=== PATIENT | male | born 1960 | race Caucasian/White ===

== ENCOUNTER → 2018-04-24 | Outpatient (CLI) | payer BC ==
--- NOTE | 2018-04-25 13:38 | RAD ---
Examination: CT chest low-dose lung screening without contrast HISTORY: History of 40 years of smoking, tobacco use COMPARISON: None available Technique: Axial CT images of chest were performed using CT protocol. Coronal and sagittal reformats performed. Exposure: One or more of the following individualized dose reduction techniques were utilized for this examination: 1. Automated exposure control 2. Adjustment of the mA and/or kV according to patient size 3. Use of iterative reconstruction technique FINDINGS: The visualized thyroid gland grossly appears unremarkable. The central airways are patent. The heart size grossly appears unremarkable. Coronary artery calcifications identified. The caliber grossly appears unremarkable. No radiologically significant mediastinal lymphadenopathy identified. Mild linear bibasilar lung atelectasis or scarring changes. No evidence of pleural effusion or pneumothorax. Minimal changes of COPD in the right apical lung. No evidence of pleural effusion or pneumothorax. No evidence of obvious lung nodule identified. The visualized noncontrasted liver, spleen, adrenals grossly appears unremarkable. No evidence of lytic bony destructive lesion. IMPRESSION: 1. No obvious lung nodules identified. ACR Lung RADS Category 1. Negative. Continue annual screening in 12 months. 2. Mild bibasilar lung atelectasis or scarring changes. Electronically signed by: Chinmay Torres MD (04/25/2018 1:34 PM) [id number]
== END | disposition home or self-care (01) ==
LOC: CT 09:26
PROVIDERS: ATTEND Nurse Practitioner Family
DX: Z12.2 Encounter for screening for malignant neoplasm of respiratory organs (principal); I25.10 Atherosclerotic heart disease of native coronary artery without angina pectoris; Z87.891 Personal history of nicotine dependence
CPT/HCPCS: G0297

== ENCOUNTER 2019-06-29 10:07 | Emergency (ER) | payer BC ==
[~2019-06-29] VITALS: Ht 177.8 cm; Wt 107.5 kg
[2019-06-29 10:16] VITALS: BP 106/72
[2019-06-29] MEDS ORDERED: ALBU2.5V8 IH (10:32)
[2019-06-29] MEDS ORDERED: AZIT250T6 PO (10:32)
--- NOTE | 2019-06-29 10:53 | PHYS DOC ---
Past History Past Medical History: GERD, High Cholesterol, Hypertension, [place] Additional Past Medical Histor: Cardiac stent x2 2015 Past Surgical History: Other Additional Past Surgical Histo: Jaw repair, shoulder x2, wisdom teeth extraction Alcohol Use: Rarely Drug Use: None Adult General Chief Complaint Chief Complaint: COUGH HPI HPI Patient is a 58-year-old male with cough onset 5 days ago green sputum and occas ional subjective fever he is a smoker no known history of COPD that he knows of although he has used inhalers with some relief in the past no chest pain Review of Systems Review of Systems Constitutional: Denies fever or chills [] Eyes: Denies change in visual acuity, redness, or eye pain [] HENT: Denies nasal congestion or sore throat [] Respiratory: : Denies dysuria or hematuria [] Musculoskeletal: Denies back pain or joint pain [] Integument: Denies rash or skin lesions [] Neurologic: Denies headache, focal weakness or sensory changes [] Endocrine: Denies polyuria or polydipsia [] All other systems were reviewed and found to be within normal limits, except as documented in this note. Allergies Allergies Allergies Coded Allergies Type Severity Reaction Last Updated Verified No Known Drug Allergies 06/29/19 No Physical Exam Physical Exam Constitutional: Well developed, well nourished, no acute distress, non-toxic a ppearance. [] HENT: Normocephalic, atraumatic, bilateral external ears normal, oropharynx moist, no oral exudates, nose normal. [] Eyes: PERRLA, EOMI, conjunctiva normal, no discharge. [] Neck: Normal range of motion, no tenderness, supple, no stridor. [] Cardiovascular:Heart rate regular rhythm, no murmur [] Lungs & Thorax: Bilateral breath sounds clear to auscultation [] Abdomen: Bowel sounds normal, soft, no tenderness, no masses, no pulsatile masses. [] Skin: Warm, dry, no erythema, no rash. [] Back: No tenderness, no CVA tenderness. [] Extremities: No tenderness, no cyanosis, no clubbing, ROM intact, no edema. [] Neurologic: Alert and oriented X 3, normal motor function, normal sensory function, no focal deficits noted. [] Psychologic: Affect normal, judgement normal, mood normal. [] Current Patient Data Vital Signs Vital Signs Date Time Temp Pulse Resp B/P (MAP) Pulse Ox O2 Delivery O2 Flow Rate FiO2 06/29/19 10:16 97.7 92 18 96 Room Air Lab Results Cough x 4days Distress * Mild Temperature (Fahrenheit): * 97.7 degrees F (97.6-99.5) Patient Temperature * 97.7 degrees F (97.5-99.5) Temperature Source * Oral Blood Pressure Systolic * 106 mm Hg (100-140) Blood Pressure Diastolic * 72 mm Hg (60-100) Blood Pressure Mean * 83 mm Hg Blood Pressure Location * Right Arm Blood Pressure Source * Automatic Cuff Pulse Rate * 92 beats per minute (60-90) H Pulse Assessment Method * Monitor Respiratory Rate * 18 breaths per minute (12-24) Oxygen Delivery Method * Room Air Bedside Pulse Oximetry * 96 % Treatment Prior to Arrival * No Complaint of Pain * No LOC EKG EKG [] Radiology/Procedures Radiology/Procedures [] Course & Med Decision Making Course & Med Decision Making Pertinent Labs and Imaging studies reviewed. (See chart for details) []58-year-old male history of hypertension smoking history presenting with 5 days of cough with green-colored sputum lungs have no focal findings saturation 96% patient's speaking full sentences prescription for the below were provided return precautions discussed in detail and patient voiced understanding likely bronchitis antibiotics indicated due to smoking history may have underlying component of COPD Dragon Disclaimer Dragon Disclaimer This electronic medical record was generated, in whole or in part, using a voice recognition dictation system. Departure Departure: Impression: Primary Impression: Bronchitis Disposition: 01 HOME, SELF-CARE Condition: STABLE Patient Instructions: Cough, Adult, Phxd-fk-Wkia Scripts Albuterol Sulfate (PROAIR HFA INHALER) 8.5 Gm Hfa.aer.ad 2 PUFF IH PRN Q4-6HRS PRN for wheezing for 21 Days, #1 INHALER 0 Refills Prov: CARL ROBB MD 06/29/19 Azithromycin (AZITHROMYCIN TABLET) 250 Mg Tablet 1 PKG PO UD for cough for 5 Days, #6 TAB 0 Refills 2 the first day followed by 1 for days 2-5 Prov: CARL ROBB MD 06/29/19 CARL ROBB MD Jun 29, 2019 10:53
== END 2019-06-29 10:35 | disposition home or self-care (01) ==
LOC: ER 10:07
DX: J40 Bronchitis, not specified as acute or chronic (principal); K21.9 Gastro-esophageal reflux disease without esophagitis; E78.00 Pure hypercholesterolemia, unspecified; I10 Essential (primary) hypertension; I25.2 Old myocardial infarction
CPT/HCPCS: 99283

== ENCOUNTER 2020-03-22 10:34 | Emergency (ER) | payer BC ==
[~2020-03-22] VITALS: Ht 177.8 cm; Wt 119.2 kg
[~2020-03-22 10:34] MED LIST: ALBU2.5V8 IH; AZIT250T6 PO
[2020-03-22 10:35] VITALS: BP 138/82
[2020-03-22] MEDS ORDERED: 0.9 % SODIUM CHLORIDE 10 ML DISP.SYRIN. IV PRN (11:15)
[2020-03-22 11:49] LABS: BASO # 0.1 x10^3/uL (0.0-0.2); BASO % 2 % (0-3); EOS % 1 % (0-3); HEMATOCRIT 42.5 % (39.0-53.0); HEMOGLOBIN 14.6 g/dL (13.0-17.5); LYMPH # 0.8 x10^3/uL (1.0-4.8); LYMPH % 21 % (24-48); MEAN CORPUSCULAR HEMOGLOBIN 31 pg (25-35); MEAN CORPUSCULAR HGB CONC 34 g/dL (31-37); MEAN CORPUSCULAR VOLUME 90 fL (79-100); MONO # 0.7 x10^3/uL (0.0-1.1); MONO % 18 % (0-9); NEUT # 2.1 x10^3uL (1.8-7.7); NEUT % 58 % (31-73); PLATELET COUNT 158 x10^3/uL (140-400); RED BLOOD COUNT 4.71 x10^6/uL (4.30-5.70); RED CELL DISTRIBUTION WIDTH 14.1 % (11.5-14.5); WHITE BLOOD COUNT 3.7 x10^3/uL (4.0-11.0)
--- NOTE | 2020-03-22 11:53 | RAD ---
AP portable chest 03/22/2020. Reason for exam: Fever. No infiltrate or effusion is seen. Vascularity appear normal. IMPRESSION: No acute disease. Electronically signed by: Iam Diego Jr., MD (03/22/2020 11:50 AM) [id number]
[2020-03-22 11:57] LABS: CALCIUM 8.6 mg/dL (8.5-10.1); CREATININE 1.3 mg/dL (0.7-1.3); GFR 56.5; POTASSIUM 3.7 mmol/L (3.5-5.1)
[2020-03-22 12:15] LABS: ALBUMIN 3.5 g/dL (3.4-5.0); ALBUMIN/GLOBULIN RATIO 0.9 (1.0-1.7); TOTAL PROTEIN 7.4 g/dL (6.4-8.2)
--- NOTE | 2020-03-22 12:36 | EKG ---
[address] [address] Test Date: 2020-03-22 Test Time: 11:29:43 Pat Name: SEJAL DARDEN Department: Room: Gender: M Operations Lieutenant: : 1960 Requested By: KEVAN FENTON Order Number: [id number] Reading MD: Measurements Intervals [place] Rate: 87 P: 31 [place]: 150 QRS: -9 QRSD: 78 T: 0 QT: 350 QTc: 422 Interpretive Statements SINUS RHYTHM LEFTWARD AXIS OTHERWISE NORMAL ECG RI6.02 Compared to ECG 03/22/2020 11:28:09 No significant changes
--- NOTE | 2020-03-22 13:22 | PHYS DOC ---
Past History Past Medical History: COPD, Diabetes, GERD, High Cholesterol, Heart Disease, Hypertension, [place], Pneumonia Additional Past Medical Histor: Cardiac stent x2 2015 Past Surgical History: Other Additional Past Surgical Histo: Jaw repair, shoulder x2, wisdom teeth extraction Alcohol Use: Rarely Drug Use: None General Adult EDM: Chief Complaint: FEVER HPI: HPI: Patient is a 59-year-old male who presented to ER today for evaluation of fever since yesterday. Patient said he checked his temperature yesterday and it was 101 degrees, he has been taking ibuprofen. He took his ibuprofen this morning at 2 AM. Patient denies any headache, no cough, no abdominal pain, no nausea vomiting. Patient also complained of sore throat. Patient denies any recent exposure to anybody who tested positive for the coronavirus. Patient denies any recent travel. Review of Systems: Review of Systems: Constitutional: Positive for fever or chills Eyes: Denies change in visual acuity HENT: Denies nasal congestion , positive for sore throat Respiratory: Denies cough or shortness of breath Cardiovascular: Denies chest pain or edema GI: Denies abdominal pain, nausea, vomiting, bloody stools or diarrhea : Denies dysuria Musculoskeletal: Denies back pain or joint pain Integument: Denies rash Neurologic: Denies headache, focal weakness or sensory changes Endocrine: Denies polyuria or polydipsia Lymphatic: Denies swollen glands Psychiatric: Denies depression or anxiety Heart Score: Risk Factors: Risk Factors: DM, Current or recent (<one month) smoker, HTN, HLP, family his tory of CAD, obesity. Risk Scores: Score 0 - 3: 2.5% MACE over next 6 weeks - Discharge Home Score 4 - 6: 20.3% MACE over next 6 weeks - Admit for Clinical Observation Score 7 - 10: 72.7% MACE over next 6 weeks - Early Invasive Strategies Current Medications: Current Meds: Current Medications Medications (Trade) Dose Ordered Sig/[place] Start Time Stop Time Status Last Admin Dose Admin Sodium Chloride (Normal Saline Flush) 10 ml QSHIFT PRN 03/22/20 11:15 Allergies: Allergies: Allergies Coded Allergies Type Severity Reaction Last Updated Verified No Known Drug Allergies 06/29/19 No Physical Exam: PE: Constitutional: Well developed, well nourished, no acute distress, non-toxic appearance. [] HENT: Normocephalic, atraumatic, bilateral external ears normal, oropharynx moist, no oral exudates, nose normal. [] Eyes: PERRLA, EOMI, conjunctiva normal, no discharge. [] Neck: Normal range of motion, no tenderness, supple, no stridor. [] Cardiovascular:Heart rate regular rhythm, no murmur [] Lungs & Thorax: Bilateral breath sounds clear to auscultation [] Abdomen: Bowel sounds normal, soft, no tenderness, no masses, no pulsatile masses. [] Skin: Warm, dry, no erythema, no rash. [] Back: No tenderness, no CVA tenderness. [] Extremities: No tenderness, no cyanosis, no clubbing, ROM intact, no edema. [] Neurologic: Alert and oriented X 3, normal motor function, normal sensory function, no focal deficits noted. [] Psychologic: Affect normal, judgement normal, mood normal. [] Current Patient Data: Labs: Laboratory Tests Test 03/22/20 11:11 03/22/20 11:15 White Blood Count 3.7 x10^3/uL (4.0-11.0) L Red Blood Count 4.71 x10^6/uL (4.30-5.70) Hemoglobin 14.6 g/dL (13.0-17.5) Hematocrit 42.5 % (39.0-53.0) Mean Corpuscular Volume 90 fL (79-100) Mean Corpuscular Hemoglobin 31 pg (25-35) Mean Corpuscular Hemoglobin Concent 34 g/dL (31-37) Red Cell Distribution Width 14.1 % (11.5-14.5) Platelet Count 158 x10^3/uL (140-400) Neutrophils (%) (Auto) 58 % (31-73) Lymphocytes (%) (Auto) 21 % (24-48) L Monocytes (%) (Auto) 18 % (0-9) H Eosinophils (%) (Auto) 1 % (0-3) Basophils (%) (Auto) 2 % (0-3) Neutrophils # (Auto) 2.1 x10^3uL (1.8-7.7) Lymphocytes # (Auto) 0.8 x10^3/uL (1.0-4.8) L Monocytes # (Auto) 0.7 x10^3/uL (0.0-1.1) Eosinophils # (Auto) 0.0 x10^3/uL (0.0-0.7) Basophils # (Auto) 0.1 x10^3/uL (0.0-0.2) Prothrombin Time 10.9 SEC (9.4-11.4) Prothrombin Time INR 1.1 (0.9-1.1) Activated Partial Thromboplast Time 28 SEC (23-33) Sodium Level 138 mmol/L (136-145) Potassium Level 3.7 mmol/L (3.5-5.1) Chloride Level 102 mmol/L (98-107) Carbon Dioxide Level 26 mmol/L (21-32) Anion Gap 10 (6-14) Blood Urea Nitrogen 18 mg/dL (8-26) Creatinine 1.3 mg/dL (0.7-1.3) Estimated GFR (Cockcroft-Gault) 56.5 BUN/Creatinine Ratio 14 (6-20) Glucose Level 154 mg/dL (70-99) H Lactic Acid Level 1.4 mmol/L (0.4-2.0) Calcium Level 8.6 mg/dL (8.5-10.1) Total Bilirubin 1.0 mg/dL (0.2-1.0) Aspartate Amino Transferase (AST) 34 U/L (15-37) Alanine Aminotransferase (ALT) 50 U/L (16-63) Alkaline Phosphatase 55 U/L (46-116) Troponin I Quantitative 0.020 ng/mL (0-0.055) Total Protein 7.4 g/dL (6.4-8.2) Albumin 3.5 g/dL (3.4-5.0) Albumin/Globulin Ratio 0.9 (1.0-1.7) L Vital Signs: Vital Signs Date Time Temp Pulse Resp B/P (MAP) Pulse Ox O2 Delivery O2 Flow Rate FiO2 03/22/20 10:35 97.9 88 20 138/82 (100) 94 Room Air EKG: EKG: [] Radiology/Procedures: Radiology/Procedures: [address] [address] IMAGING REPORT Signed PATIENT: SEJAL DARDEN ACCOUNT: [id number] : 1960 LOCATION: ER AGE: 59 SEX: M EXAM STATUS: REG ER ORD. PHYSICIAN: KEVAN FENTON DO REASON: fever PROCEDURE: PORTABLE CHEST 1V AP portable chest 03/22/2020. Reason for exam: Fever. No infiltrate or effusion is seen. Vascularity appear normal. IMPRESSION: No acute disease. Electronically signed by: Danielle Diego Jr., MD (03/22/2020 11:50 AM) [id number] DICTATED AND SIGNED BY: DANIELLE DIEGO Jr, MD DATE: 03/22/20 1150 CC: MAHENDRA HATFIELD; KEVAN FENTON DO ~ Course & Med Decision Making: Course & Med Decision Making Pertinent Labs and Imaging studies reviewed. (See chart for details) Patient is a 59-year-old male who was evaluated in the ER due to fever. Patient found to have no fever in the ER. Patient chest x-ray was normal, his lab work come back within normal limits as well. Patient blood was cultured, he was tested for COVID-19. Patient was told to go home and quarantine himself until he heard from us. Dragon Disclaimer: [employer] Disclaimer: This electronic medical record was generated, in whole or in part, using a voice recognition dictation system. Departure Departure: Impression: Primary Impression: Fever Disposition: 01 HOME/RESIDENCE PRIOR TO ADM Condition: STABLE Referrals: MAHENDRA HATFIELD (PCP) PLEASE FOLLOW UP WITH YOUR DOCTOR NEXT WEEK Patient Instructions: Fever Additional Instructions: You have been tested for or diagnosed with COVID-19. It is an infection caused by a new type of coronavirus. COVID-19 will cause cold-like or mild flu symptoms in most. It can cause more severe symptoms like problems breathing in some. There is no treatment for COVID-19. The body will clear the infection over time. Self-care will help to ease discomfort. Steps to Take: Self-Care Rest as needed. Healthy habits may help you feel better. Steps include: Choose healthy foods including fruits and vegetables. Drink water throughout the day. Get plenty of sleep each night. If you smoke, try to quit. It may ease breathing. Avoid alcohol. Keep Others Healthy The virus can spread to others. Droplets are released every time you sneeze or cough. The droplets can get into the mouth, nose, or eyes of people near you and lead to infection. To lower the chances of spreading COVID-19 to others: Stay at home until your doctor has said it is safe to leave. If you tested positive this will mean staying isolated until both of the following are true: At least 7 days have passed since the start of illness. You are free of fever for at least 72 hours without the use of medicine. During this time: - Avoid public areas, events, or transportation. Do not return to work or school until your doctor has said it is safe to do so. - Call ahead if you need to go to a medical center. Let them know you may have COVID-19. It will help them guide you where to go. They may also ask you to wear a facemask when you come to the office. - If you call for emergency medical services, let them know you may have COVID- 19. While at home: - Try to avoid close contact with others. Stay about 6 feet away. - If possible, spend most of your time in a separate room from others. - Use a face mask if you will be in close contact with others such as sharing a room or vehicle. - Have someone wipe down common surfaces in the home. Use household cellulose insulation helper every day on areas like doorknobs, counters, or sinks. - Cough or sneeze into a tissue. Throw the tissue away right after use. If a tissue is not available, cough or sneeze into your elbow. - Wash your hands often. Wash them after sneezing or coughing. Use soap and water and wash for at least 20 seconds. Alcohol based hand filter screen cleaner can be used if soap and water is not available. - Do not prepare food for others. Avoid sharing personal items like forks, spoons, or toothbrushes. - Avoid close contact with pets while you are sick. There is no evidence of the virus passing to pets. This is a safety step until more is known about this virus. Isolation can be frustrating. Social interaction can help. Keep in touch with friends and family through phone and tech options. You can still interact with others in yo ur home, just keep a safe distance of about 6 feet. Follow-up: Your doctors office will check in with you to see if there are any changes in your health. You may be asked to keep track of symptoms to share with them. They will also let you know when you are clear to be in public again. Problems to Look Out For: Contact your doctor if your recovery is not going as you expect. Get emergency care if you have problems such as: - Trouble breathing - Nonstop chest pain or pressure - Changes in awareness, confusion, or problems waking - Lips or face have bluish color - Worsening of symptoms If you think you have an emergency, call for emergency medical services right away. As taken from [facility] Justification of Admission: Justification of Admission: Justification of Admission Dx: N/A KEVAN FENTON DO Mar 22, 2020 13:22
[2020-03-22 14:41] LABS: BILIRUBIN,URINE NEG (NEG); CLARITY,URINE CLEAR; COLOR,URINE AMBER; GLUCOSE,URINE NEG (NEG); NITRITE,URINE NEG (NEG); UROBILINOGEN,URINE 0.2 mg/dL (0.2 mg/dL)
[2020-03-22 14:42] LABS: BACTERIA,URINE FEW /HPF (0-FEW); SQUAMOUS EPITHELIAL CELL,UR OCC /LPF; WBC,URINE OCC /HPF (0-4)
--- NOTE | 2020-03-24 12:35 | NUR ---
IP: notified patient of COVID-19 results, had questions regarding other possible diagnosis, referred to PCP.
== END 2020-03-22 13:30 | disposition home or self-care (01) ==
LOC: ER 10:34
DX: R50.9 Fever, unspecified (principal); J02.9 Acute pharyngitis, unspecified; Z20.828 Contact with and (suspected) exposure to other viral communicable diseases; J44.9 Chronic obstructive pulmonary disease, unspecified; E11.9 Type 2 diabetes mellitus without complications; K21.9 Gastro-esophageal reflux disease without esophagitis; E78.00 Pure hypercholesterolemia, unspecified; I11.9 Hypertensive heart disease without heart failure; I25.2 Old myocardial infarction
CPT/HCPCS: 36415; 71045; 80053; 81001; 83605; 84484; 85025; 85610; 85730; 87040; 87070; 87880; 93005; 99285; U0003

== ENCOUNTER → 2020-06-10 | Outpatient (CLI) | payer BC ==
--- NOTE | 2020-06-10 11:12 | CARD ---
MR#: [id number] Date of Study: 06/10/2020 Ordering Physician: RADHA SWAN, Referring Physician: RADHA SWAN, Tech: Enma Burns LOY APPROVED REPORT EXAM: Two-dimensional and M-mode echocardiogram with Doppler and color Doppler. Other Information Quality : Good INDICATION Hypoxemia 2D DIMENSIONS Left Atrium(2D)3.5 (1.6-4.0cm)IVSd1.0 (0.7-1.1cm) Aortic Root(2D)3.0 (2.0-3.7cm)LVDd4.8 (3.9-5.9cm) LVOT Diameter2.0 (1.8-2.4cm)PWd1.0 (0.7-1.1cm) LVDs3.3 (2.5-4.0cm)FS (%) 30.5 % SV61.1 mlLVEF(%)57.8 (>50%) Aortic Valve AoV Peak Sudheer.111.1cm/sAoV VTI17.7cm AO Peak GR.4.9mmHgLVOT Peak Sudheer.115.1cm/s LVOT VTI 19.82cmAO Mean GR.2mmHg BOBBY (VMAX)3.71qr8SCS (VTI)3.49cm2 Mitral Valve MV E Mvvnppon04.6cm/sMV DECEL [id number] MV A Hmpqkpas98.2cm/sE/A Ratio0.7 Pulmonary Vein S1 Qnxglkjp51.3cm/sD2 Qdywjgic05.3cm/s LEFT VENTRICLE The left ventricle is normal size. There is normal left ventricular wall thickness. The left ventricu lar systolic function is normal and the ejection fraction is within normal range. The Ejection Fracti on is 55-60%. There is normal LV segmental wall motion. Transmitral Doppler flow pattern is Grade I-a bnormal relaxation pattern. RIGHT VENTRICLE The right ventricle is normal size. The right ventricular systolic function is normal. ATRIA The left atrium size is normal. The right atrium size is normal. The interatrial septum is intact wit h no evidence for an atrial septal defect or patent foramen ovale as noted on 2-D or Doppler imaging. AORTIC VALVE The aortic valve is calcified but opens well. Doppler and Color Flow revealed no significant aortic r egurgitation. There is no significant aortic valvular stenosis. MITRAL VALVE The mitral valve is calcified but opens well. There is no evidence of mitral valve prolapse. There is no mitral valve stenosis. Doppler and Color-flow revealed trace mitral regurgitation. TRICUSPID VALVE The tricuspid valve is normal in structure and function. Doppler and Color Flow revealed no tricuspid valve regurgitation noted. There is no tricuspid valve stenosis. PULMONIC VALVE The pulmonic valve is not well visualized. Doppler and Color Flow revealed mild pulmonic valvular reg urgitation. There is no pulmonic valvular stenosis. GREAT VESSELS The aortic root is normal in size. The ascending aorta is normal in size. The IVC is normal in size a nd collapses >50% with inspiration. PERICARDIAL EFFUSION There is no evidence of significant pericardial effusion. Critical Notification Critical Value: No <Conclusion> The left ventricular systolic function is normal and the ejection fraction is within normal range. Th e Ejection Fraction is 55-60%. There is normal LV segmental wall motion. Signed by : Rico Chou, Electronically Approved : 06/10/2020 11:11:21
== END | disposition home or self-care (01) ==
LOC: ECHO 07:33
PROVIDERS: ATTEND Internal Medicine Pulmonary Disease
DX: I08.8 Other rheumatic multiple valve diseases (principal)
CPT/HCPCS: 93306

== ENCOUNTER → 2021-03-17 | Outpatient (CLI) | payer BC ==
--- NOTE | 2021-03-17 12:59 | RAD ---
PQRS Compliance Statement: One or more of the following individualized dose reduction techniques were utilized for this examinat ion: 1. Automated exposure control 2. Adjustment of the mA and/or kV according to patient size 3. Use of iterative reconstruction technique CT LOW DOSE LUNG SCREEN 03/17/2021 10:58 AM Indication: Lung cancer screening. History of sarcoma of the left upper arm. Smoking history. COMPARISON: CT CT chest 04/24/2018, 04/01/2020, 06/15/2019 TECHNIQUE: Multiple axial CT images of the chest were obtained without intravenous contrast utilizing low-dose technique. Coronal and sagittal reformats are provided. FINDINGS: No suspicious solid noncalcified pulmonary nodules. No pleural effusions, pulmonary vascular congesti on or pneumothorax. Lungs are clear. Mild bronchial wall thickening about nonspecific bronchitis. Thy roid gland is normal in appearance. No pathologically enlarged thoracic lymph nodes. Heart size withi n normal limits. Three-vessel coronary artery vascular calcific effusions are present. Thoracic esoph patricia is normal in appearance. Mitral annular calcifications are suspected. Hepatic steatosis. No susp icious osseous abnormality. IMPRESSION: No suspicious solid noncalcified pulmonary nodule. Lung RADS category 1, negative. Recommend low-dose chest CT in one year. Mild nonspecific bronchitis. Three-vessel coronary artery vascular calcifications. Electronically signed by: Asia Talavera MD (03/17/2021 12:57 PM) [id number]
== END ==
LOC: CT 10:31
PROVIDERS: ATTEND Internal Medicine Pulmonary Disease
DX: Z12.2 Encounter for screening for malignant neoplasm of respiratory organs (principal); J40 Bronchitis, not specified as acute or chronic; I25.10 Atherosclerotic heart disease of native coronary artery without angina pectoris
CPT/HCPCS: 71271